=== PATIENT | male | born 1960 | race Caucasian/White ===

== ENCOUNTER 2018-12-11 13:20 | Emergency (ER) | payer MEDICAID ==
[~2018-12-11] VITALS: Ht 172.7 cm; Wt 92.9 kg
[~2018-12-11 13:20] MED LIST: ALLO300T PO; OXYC1TAB7 PO
--- NOTE | 2018-12-11 15:09 | NUR ---
CONTROL CLERK: PT AMBULATORY TO ED ROOM 21 FROM [facility] IN [facility] AT THIS TIME
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
--- NOTE | 2018-12-11 15:55 | NUR ---
BREAK RN. DAO OSMAN AT BEDSIDE FOR EVAL. PT REPORTS HE IS TAKING ANTIBIOTICS PRESCRIBED TO HIM YESTERDAY, UNABLE TO RECALL NAME.
[2018-12-11] MEDS ORDERED: LIDOCAINE-MPF 1%, 5ML INFIL ONE (16:00)
--- NOTE | 2018-12-11 16:05 | NUR ---
BREAK RN. I&D SET UP BY EMT. LIDOCAINE PROVIDED TO DAO OSMAN PER ORDER.
[2018-12-11] MEDS ORDERED: LIDOCAINE-MPF 1%, 5ML ONE (16:07)
--- NOTE | 2018-12-11 16:14 | NUR ---
BREAK RN. BEDSIDE REPORT AND CARE BACK TO PRIMARY RN DIDIER AT THIS TIME.
--- NOTE | 2018-12-11 17:24 | NUR ---
KATIE RN ASSISTING PRIMARY RN DIDIER, IN TO DISCHARGE PT, PT REQUESTING PAIN MEDICATION, DISCUSSED WITH DAO OSMAN, ORDERS RECEIVED TO MEDICATE PT FOR 10/10 LEFT ARM PAIN. CMS INTACT. RADIAL PULSE NORMAL AND STRONG. CALL LIGHT IN REACH. VSS.
[2018-12-11] MEDS ORDERED: OXYcodone/APAP 10/325MG TABLET ONE (17:26)
[2018-12-11] MEDS ORDERED: OXYcodone/APAP 10/325MG TABLET PO ONE (17:30)
[2018-12-11 17:55] VITALS: BP 136/74
== END 2018-12-11 17:58 | disposition home or self-care (01) ==
LOC: ED 16:41
DX: L03.114 Cellulitis of left upper limb (principal)
CPT/HCPCS: 87070; 87186; 87205; 99283

== ENCOUNTER 2018-12-16 12:49 | Emergency (ER) | payer MEDICAID ==
[~2018-12-16] VITALS: Ht 172.7 cm; Wt 93.2 kg
[2018-12-16 12:57] VITALS: BP 132/72
== END 2018-12-16 13:24 | disposition home or self-care (01) ==
LOC: ED 12:55
DX: L02.414 Cutaneous abscess of left upper limb (principal)
CPT/HCPCS: 99283

== ENCOUNTER 2018-12-19 15:44 | Emergency (ER) | payer MEDICAID ==
[~2018-12-19] VITALS: Ht 167.6 cm; Wt 92.9 kg
[2018-12-19 16:06] VITALS: BP 158/78
== END 2018-12-19 16:49 | disposition home or self-care (01) ==
LOC: ED 16:43
DX: L02.414 Cutaneous abscess of left upper limb (principal)
CPT/HCPCS: 99283

== ENCOUNTER 2019-08-12 04:14 | Emergency (ER) | payer SELFPAY ==
[~2019-08-12] VITALS: Ht 177.8 cm; Wt 74.0 kg
[2019-08-12 04:22] VITALS: BP 111/79
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
--- NOTE | 2019-08-12 04:52 | NUR ---
PT PROVIDED WARM BLANKET PER REQUEST. DHARA OSMAN IN WITH PT FOR HISTORY AND ASSESSMENT AT THIS TIME. BREATHALYZER OBTAINED.
--- NOTE | 2019-08-12 05:44 | NUR ---
PT EVALUATED BY ERP AND DETERMINED TO BE SAFE FOR D/C AT THIS TIME. PT BELONGINGS RETURNED TO PT. PT DENIES ANY OTHER NEEDS PERTAINING TO THIS VISIT. PT AMBULATES TO REGISTRATION DESK WITH STEADY GAIT FOR D/C HOME.
== END 2019-08-12 06:02 | disposition home or self-care (01) ==
LOC: ED 05:03
DX: R45.851 Suicidal ideations (principal); F10.129 Alcohol abuse with intoxication, unspecified; M10.9 Gout, unspecified
CPT/HCPCS: 99284